=== PATIENT | female | born 1995 | race African-American/Black ===

== ENCOUNTER → 2019-04-06 | Outpatient (CLI) | payer BC ==
--- NOTE | 2019-04-13 16:24 | SLEEP ---
[address] [address] SLEEP STUDY REPORT Name: ELIGIO WHITTEN Room: [facility]#: [id number] Admission: 04/06/19 Attend Phys: Peyton Youngblood MD Discharge: Date of : 89 Report #: [id number] THIS REPORT FOR: //name// CC: Peyton Rosenbaum This study has been reviewed in its entirety by a board certified sleep specialist DATE OF SERVICE: 04/09/2019 HOME SLEEP STUDY ATTENDING PHYSICIAN: Not available. The patient is a 23-year-old who weighs 125 pounds with a BMI of 25.2. The patient's [place] score was less than 5. The patient underwent a home sleep study performed at [facility]. Total recording time was 500 minutes. During the night study, the patient had 14 obstructive apneas, no central or mixed apneas and no hypopneas. The patient's AHI for the entire night was 1.7 per hour. Nocturnal oximetry study revealed an average oxygen saturation of 95% with lowest of 83%. No significant desaturations of less than 90% were seen. Mean heart rate 67 beats per minute. IMPRESSION: 1. No clinically significant sleep disordered breathing. The patient's AHI for the entire night was 1.7 per hour. 2. No clinically significant nocturnal hypoxia. RECOMMENDATIONS: 1. The patient did not meet the criteria for CPAP initiation. 2. Avoid [employer] depressants. <ELECTRONICALLY SIGNED> By: Fabian U. Lutz, MD 04/13/19 1624 [id number] Lutz MD /nt
== END ==
LOC: M.SLEEPLAB 04-05 17:30
DX: G47.8 Other sleep disorders (principal)